=== PATIENT | male | born 1995 | race Caucasian/White ===

== ENCOUNTER 2017-08-17 06:32 | Day surgery (SDC) | payer OTHER ==
[~2017-08-17] VITALS: Ht 180.3 cm; Wt 92.5 kg
--- NOTE | ~2017-08-17 | O ---
[facility] [place] [address] OPERATIVE REPORT Name: ALYSON RAMIRES Room #: 150-8 [facility]..#: [id number] Admission: 08/17/17 Attend Phys: Valente Arce MD Discharge: Date of : 89 Report #: [id number] THIS REPORT FOR: //name// CC: Antoine Arce DATE OF SERVICE: 08/17/2017 PREOPERATIVE DIAGNOSIS: Right arm, both bone forearm fracture. POSTOPERATIVE DIAGNOSIS: Right arm, both bone forearm fracture. PROCEDURE: Right both bone forearm ORIF. SURGEON: Valente Arce MD. MANAGER FOOD: SANDY Doss. INDICATIONS FOR MANAGER FOOD: During the course of operation, extensive manipulation, retraction and limb positioning was required. This was afforded to me by my assistant center director. ANESTHETIC: General. INDICATIONS: See hospital history and physical. DESCRIPTION OF PROCEDURE: After adequate general anesthesia had been obtained, the patient's right upper extremity was prepped and draped in the usual meticulous sterile fashion. He did have an abrasion directly over the ulna, but it appeared clean. We gravity exsanguinated the limb and inflated the tourniquet to 250 torr. We made a dorsal incision to the forearm directly over the radius fracture. SubQ was divided using gentle spreading technique. We developed the interval between the extensor carpi radialis brevis and extensor digitorum tendons and mobilized the long abductor muscle to expose the radius. The fracture was then manually reduced. He did have a butterfly fragment volarly, but the fracture did reduce well. A 6-hole plate was applied and bicortical screws were placed. The construct was checked in 2 planes on the C-arm and found to be in good position. I did note that his fracture on the ulnar side was essentially nondisplaced and after fixing the radius, his fracture lined up anatomically, this in combination with the fact that he had an abrasion overlying the ulna. I thought it would be best to allow it to heal on its own which I think it well as the field felt quite stable with his construct. Wound was irrigated copiously. SubQ was closed with 3-0 Monocryl sutures and skin closed with a running subcuticular 2-[address] [address] OPERATIVE REPORT Name: ALYSON RAMIRES Room #: 150-8 [facility].#: [id number] Admission: 08/17/17 Attend Phys: Valente Arce MD Discharge: Date of : 89 Report #: [id number] Prolene. Steri-Strips applied. Sterile compressive dressing was applied. Long arm splint applied. Tourniquet deflated. By: [id number] Valente Arce MD /nt
[~2017-08-17 06:32] MED LIST: ACCUNEB SO1.25 MG/1 INH; ADDERALL 10 MG10 MG PO; HYDROCODON-ACE1 EAC7 PO; PERCOCET PO; VYVANSE60 MG PO
[2017-08-17 12:34] VITALS: BP 124/66
[2017-08-17 16:17] VITALS: BP 124/66
== END 2017-08-17 16:45 | disposition home or self-care (01) ==
LOC: OR 06:32 → TBA 06:34 → OR 10:46
DX: S52.91XA Unspecified fracture of right forearm, initial encounter for closed fracture (principal); S50.811A Abrasion of right forearm, initial encounter; J45.909 Unspecified asthma, uncomplicated; F17.210 Nicotine dependence, cigarettes, uncomplicated; Z98.890 Other specified postprocedural states; X58.XXXA Exposure to other specified factors, initial encounter; Y93.89 Activity, other specified; Y92.89 Other specified places as the place of occurrence of the external cause; Y99.8 Other external cause status
CPT/HCPCS: 50010; 50101; 50347; 50386; 51736; 56525; 56667; 57091; 62110; 62900; 70005

== ENCOUNTER 2017-12-11 13:22 | Emergency (ER) | payer OTHER ==
[~2017-12-11] VITALS: Ht 177.8 cm; Wt 96.2 kg
[2017-12-11] MEDS ORDERED: IBUPROFEN 600600 M1 PO (14:52)
[2017-12-11 15:21] VITALS: BP 150/88
== END 2017-12-11 15:23 | disposition home or self-care (01) ==
LOC: ER 13:22
DX: S52.302A Unspecified fracture of shaft of left radius, initial encounter for closed fracture (principal); J45.909 Unspecified asthma, uncomplicated; F17.210 Nicotine dependence, cigarettes, uncomplicated; X50.9XXA Other and unspecified overexertion or strenuous movements or postures, initial encounter; Y93.89 Activity, other specified; Y92.89 Other specified places as the place of occurrence of the external cause; Y99.8 Other external cause status